=== PATIENT | female | born 1945 | race Caucasian/White ===

== ENCOUNTER 2016-10-18 09:50 | Outpatient (CLI) | payer MEDICARE, OTHER ==
--- NOTE | 2016-10-21 13:10 | Mammography Report ---
DIGITAL SCREENING MAMMOGRAM: 10/18/2016 CLINICAL INDICATION: A 71-year-old with history of bilateral reduction, nulliparous patient, for scre ening. COMPARISON: 10/2015, 10/2014, 10/2013, 01/2013, 06/2012, 06/2011, 06/2010, 05/2009, 05/2008, 02/2007. TECHNIQUE: Routine CC and MLO projections were obtained of the breasts. FINDINGS: The breasts again demonstrate scattered fibroglandular densities. Coarse, typically benign calcifications are present. Postoperative changes are stable. No suspicious masses, clustered microc alcifications, or regions of architectural distortion are identified. IMPRESSION: BENIGN FINDINGS. RECOMMENDATION: ROUTINE ANNUAL SCREENING UNLESS OTHERWISE CLINICALLY INDICATED. BIRADS CATEGORY 2-BENIGN FINDINGS. STANDARD QUALIFYING STATEMENTS 1. This examination was reviewed with the aid of Computer-Aided Detection (CAD). 2. A negative or benign imaging report should not delay biopsy if clinically suspicious findings are present. Consider surgical consultation if warranted. More than 5% of cancers are not identified by i maging. 3. Dense breasts may obscure an underlying neoplasm. JOB #: [id number] EXT JOB #:[id number]
== END 2016-10-18 09:51 | disposition home or self-care (01) ==
LOC: DI 09:50
PROVIDERS: ATTEND Family Medicine
DX: Z12.31 Encounter for screening mammogram for malignant neoplasm of breast (principal)
CPT/HCPCS: 77067

== ENCOUNTER 2017-04-14 08:00 | Outpatient (CLI) | payer MEDICARE, OTHER ==
[2017-04-14 19:30] LABS: ALBUMIN/GLOBULIN RATIO 1.6 (1.0-2.2); BILIRUBIN,TOTAL 0.4 mg/dL (0.2-1.0); BUN - BLOOD UREA NITROGEN 18 mg/dL (6-20); CALCIUM 9.5 mg/dL (8.5-10.3); CARBON DIOXIDE - CO2 27 mmol/L (21-32); CHLORIDE 107 mmol/L (101-111); CHOL/HDL RATIO 3.3 (<4.4); CHOLESTEROL 199 mg/dL; CREATININE 0.9 mg/dL (0.4-1.0); GFR - MDRD 62 (>89); GLUCOSE 89 mg/dL (70-100); HDL CHOLESTEROL 60 mg/dL; LDL/HDL RATIO 1.7 (<4.4); SODIUM 139 mmol/L (135-145); TOTAL PROTEIN 7.2 g/dL (6.7-8.2); TRIGLYCERIDES 197 mg/dL; VLDL CHOLESTEROL 39 mg/dL
== END 2017-04-14 08:01 | disposition home or self-care (01) ==
LOC: LAB.WCP 08:00
PROVIDERS: ATTEND Family Medicine
DX: Z00.00 Encounter for general adult medical examination without abnormal findings (principal); Z79.899 Other long term (current) drug therapy; E78.5 Hyperlipidemia, unspecified; K51.90 Ulcerative colitis, unspecified, without complications
CPT/HCPCS: 36415; 80053; 80061

== ENCOUNTER 2017-04-18 15:37 | Outpatient (CLI) | payer MEDICARE, OTHER ==
--- NOTE | 2017-04-20 00:02 | Ultrasound Report ---
EXAM: ABDOMEN ULTRASOUND EXAM DATE: 04/18/2017 04:59 PM. CLINICAL HISTORY: Abdominal pain and nausea/vomiting. COMPARISON: None. TECHNIQUE: Real-time scanning was performed with static images obtained. FINDINGS: Liver: Normal parenchymal echotexture. Main portal vein flow: Hepatopetal. Gallbladder: Normal. No stones, wall thickening, or sonographic Collins's sign. Biliary System: Common bile duct measures 4 mm. No intrahepatic or extrahepatic ductal dilatation. Pancreas: Unremarkable as visualized. The tail is obscured by overlying bowel gas. Kidneys: Right: 9.8 cm in length. Thin cortex. Normal parenchymal echogenicity. No visualized shadowing stones or hydronephrosis. Left: 9.8 cm in length. Normal parenchymal echogenicity. No visualized shadowing stones or hydronephr osis. Spleen: Normal size and echotexture, 9.1 cm in length. Aorta and Inferior Vena Cava: Unremarkable. Other: None. IMPRESSION: 1. No potential etiology identified for abdominal pain and nausea/vomiting. Specifically, no cholelit hiasis or sonographic evidence for acute cholecystitis. 2. Mild right renal atrophy. [facility] Referring Provider Line: [phone] SITE ID: [id number]
== END 2017-04-18 15:38 | disposition home or self-care (01) ==
LOC: DI 15:37
PROVIDERS: ATTEND Family Medicine
DX: R10.9 Unspecified abdominal pain (principal)
CPT/HCPCS: 76700

== ENCOUNTER 2017-07-04 08:41 | Outpatient (CLI) | payer MEDICARE, OTHER ==
--- NOTE | 2017-07-04 16:00 | Nuclear Medicine Report ---
EXAM: GASTRIC EMPTYING STUDY EXAM DATE: 07/04/2017 09:09 AM. CLINICAL HISTORY: GASTRO ESOPHAGEAL REFLUX DISEASE W/ESOPHAGITIS. COMPARISON: None. TECHNIQUE: A standard meal was radiolabeled with 0.9 mCi Tc-99m sulfur colloid according to protocol. Following the p.o. administration of this meal, the patient underwent multiple static images over th e abdomen from the anterior and posterior projections, at approximately 0, 1, 2, 3, and 4 hours foll owing the ingestion of the meal. Region of interest analysis was employed, and percent emptied/percen t remaining of the meal was calculated using both the geometric mean and decay corrections. FINDINGS: Calculations demonstrate: TIME (hours) Percent remaining. Normal values for percent remaining. 1 hour: 19.2% (30-90%) 2 hours: 5% (0-60%) 3 hours: 2.9% (0-30%) 4 hours: 1.1% (0-10%) IMPRESSION: Rapid gastric emptying. [facility] Referring Provider Line: [phone] SITE ID: [id number]
== END 2017-07-04 08:42 | disposition home or self-care (01) ==
LOC: DI 08:41
PROVIDERS: ATTEND Internal Medicine Gastroenterology
DX: K21.0 Gastro-esophageal reflux disease with esophagitis (principal)
CPT/HCPCS: 78265; A9541

== ENCOUNTER 2018-06-08 08:00 | Outpatient (CLI) | payer MEDICARE, OTHER | END 2018-06-08 23:59 | disposition home or self-care (01) | LOC: LAB.R 08:00 | PROVIDERS: ATTEND Family Medicine | DX: N39.0 Urinary tract infection, site not specified (principal) | CPT/HCPCS: 87086; 87181 ==

== ENCOUNTER 2018-10-12 14:19 | Outpatient (CLI) | payer MEDICARE, OTHER ==
--- NOTE | 2018-10-12 15:34 | XRAY Report ---
Reason: KNEE JOINT PAIN,RIGHT Procedure Date: 10/12/2018 Accession Number: [id number] / [id number] Procedure: WCP - Knee 2 View RT CPT Code: FULL RESULT: EXAM: RIGHT KNEE RADIOGRAPHY EXAM DATE: 10/12/2018 02:36 PM. CLINICAL HISTORY: Knee joint pain, right. COMPARISON: None. TECHNIQUE: 2 views. FINDINGS: Bones: Normal. No fractures or bone lesions. Joints: Small joint effusion. No dislocation. No significant marginal osteophytosis or joint space loss. Soft Tissues: Normal. No soft tissue swelling. IMPRESSION: Small joint effusion without significant degenerative changes. [facility]
== END 2018-10-12 14:20 | disposition home or self-care (01) ==
LOC: DI.WCP 14:19
PROVIDERS: ATTEND Family Medicine
DX: M25.461 Effusion, right knee (principal)

== ENCOUNTER 2018-10-12 14:22 | Outpatient (CLI) | payer MEDICARE, OTHER ==
--- NOTE | 2018-10-12 15:14 | XRAY Report ---
Reason: ANKLE JOINT PAIN,RIGHT Procedure Date: 10/12/2018 Accession Number: [id number] / [id number] Procedure: WCP - Ankle 2 View RT CPT Code: FULL RESULT: EXAM: RIGHT ANKLE RADIOGRAPHY EXAM DATE: 10/12/2018 02:36 PM. CLINICAL HISTORY: Right ankle joint pain. COMPARISON: None. TECHNIQUE: 2 views. FINDINGS: Bones: Normal. No fractures or bone lesions. Joints: Normal. No effusion. No subluxations. The ankle mortise is normally aligned. Soft Tissues: Normal. No soft tissue swelling. IMPRESSION: Normal ankle radiography. [facility]
== END 2018-10-12 14:23 | disposition home or self-care (01) ==
LOC: DI.WCP 14:22
PROVIDERS: ATTEND Family Medicine
DX: M25.571 Pain in right ankle and joints of right foot (principal); M25.561 Pain in right knee; M25.461 Effusion, right knee

== ENCOUNTER 2019-04-23 10:11 | Outpatient (CLI) | payer MEDICARE, OTHER ==
[2019-04-23 18:57] LABS: BASOPHILS % (AUTO) 0.6 %; EOSINOPHILS # (AUTO) 0.2 10^3/uL (0.0-0.7); EOSINOPHILS % (AUTO) 3.2 %; LYMPHOCYTES # (AUTO) 1.5 10^3/uL (1.5-3.5); LYMPHOCYTES % (AUTO) 21.1 %; MEAN CORPUSCULAR HEMOGLOBIN 30.5 pg (27.0-31.0); MEAN CORPUSCULAR HGB CONC 31.8 g/dL (32.0-36.0); MEAN CORPUSCULAR VOLUME 95.9 fL (81.0-99.0); MEAN PLATELET VOLUME 10.4 fL (7.9-10.8); MONOCYTES # (AUTO) 0.5 10^3/uL (0.0-1.0); MONOCYTES % (AUTO) 6.5 %; NEUTROPHILS # (AUTO) 4.8 10^3/uL (1.5-6.6); NEUTROPHILS % (AUTO) 68.3 %; PLT - PLATELET COUNT 201 10^3/uL (130-450); RED BLOOD COUNT 4.59 10^6/uL (4.20-5.40); RED CELL DISTRIBUTION WIDTH 12.7 % (12.0-15.0)
[2019-04-23 19:30] LABS: ALBUMIN 4.5 g/dL (3.2-5.5); ALBUMIN/GLOBULIN RATIO 1.5 (1.0-2.2); ALKALINE PHOSPHATASE 68 IU/L (42-121); ALT ALANINE AMINOTRANSFERASE 24 IU/L (10-60); AST ASPARTATE AMINOTRANSFERASE 26 IU/L (10-42); BILIRUBIN,TOTAL 0.9 mg/dL (0.2-1.0); BUN - BLOOD UREA NITROGEN 12 mg/dL (6-20); CALCIUM 9.5 mg/dL (8.5-10.3); CARBON DIOXIDE - CO2 28 mmol/L (21-32); CHLORIDE 107 mmol/L (101-111); CHOL/HDL RATIO 3.2 (<4.4); CHOLESTEROL 213 mg/dL; CREATININE 0.9 mg/dL (0.4-1.0); GFR - MDRD 62 (>89); GLUCOSE 94 mg/dL (70-100); HDL CHOLESTEROL 66 mg/dL; LDL CHOLESTEROL,CALCULATED 115 mg/dL; LDL/HDL RATIO 1.7 (<4.4); SODIUM 141 mmol/L (135-145); TOTAL PROTEIN 7.6 g/dL (6.7-8.2); VLDL CHOLESTEROL 32 mg/dL
== END 2019-04-23 23:59 | disposition home or self-care (01) ==
LOC: LAB.WCP 10:11
PROVIDERS: ATTEND Nurse Practitioner Family
DX: K51.90 Ulcerative colitis, unspecified, without complications (principal); Z79.899 Other long term (current) drug therapy
CPT/HCPCS: 36415; 80053; 80061; 83721; 84443; 85025

== ENCOUNTER 2019-06-22 09:34 | Outpatient (CLI) | payer MEDICARE, OTHER ==
--- NOTE | 2019-06-30 09:20 | Mammography Report ---
Reason: ROUTINE MAMMO Procedure Date: 06/22/2019 Accession Number: [id number] / [id number] Procedure: LYNSEY - Screening Mammo w/Crist[facility] CPT Code: Final Report FULL RESULT: EXAM: Screening Mammo w/Crist[facility] DATE: 06/22/2019 10:14 AM CLINICAL HISTORY: Screening encounter. History of nulliparity. TECHNIQUE: (B) - Bilateral CC and MLO views were obtained. COMPARISON: 10/18/2016 through 06/25/2010. PARENCHYMAL PATTERN: (F) - The breast(s) demonstrate(s) diffuse fatty replacement. FINDINGS: There are no suspicious masses, calcifications, or areas of distortion. IMPRESSION: Negative examination. BI-RADS category 1. RECOMMENDATION: (ANNUAL) - Recommend routine annual screening mammography. BI-RADS CATEGORY: (1) - Negative. STANDARD QUALIFYING STATEMENTS: 1. This examination was not reviewed with the aid of Computer-Aided Detection (CAD). 2. A negative or benign imaging report should not preclude biopsy if clinically suspicious findings are present. 3. Dense breasts may obscure an underlying neoplasm. 4. This examination was reviewed with the aid of 3D breast imaging (tomosynthesis).
== END 2019-06-22 09:35 | disposition home or self-care (01) ==
LOC: DI 09:34
DX: Z12.31 Encounter for screening mammogram for malignant neoplasm of breast (principal)
CPT/HCPCS: 77063; 77067

== ENCOUNTER 2020-07-18 07:00 | Outpatient (CLI) | payer MEDICARE, OTHER ==
[2020-07-18 18:15] LABS: BILIRUBIN,URINE NEGATIVE (NEGATIVE); GLUCOSE, URINE (UA) NEGATIVE (NEGATIVE); KETONES,URINE (UA) NEGATIVE (NEGATIVE); LEUKOCYTE ESTERASE, URINE MODERATE (NEGATIVE); NITRITE,URINE NEGATIVE (NEGATIVE); OCCULT BLOOD,URINE TRACE-INTA (NEGATIVE); PH,URINE 7.5 PH (5.0-7.5); PROTEIN,URINE NEGATIVE (NEGATIVE); UROBILINOGEN,URINE 0.2 (NORMAL) E.U./dL (NORMAL)
[2020-07-18 18:26] LABS: BACTERIA,URINE Rare /HPF (None Seen); CLARITY,URINE CLEAR (CLEAR); RBC,URINE 0-5 /HPF (0-5); SQUAMOUS EPITHELIAL CELL,UR RARE Squamous (<= Few)
== END 2020-07-18 23:59 | disposition home or self-care (01) ==
LOC: LAB.WCP 07:00
PROVIDERS: ATTEND Family Medicine
DX: N39.0 Urinary tract infection, site not specified (principal); N39.41 Urge incontinence
CPT/HCPCS: 81001

== ENCOUNTER 2021-02-27 09:36 | Outpatient (CLI) | payer MEDICARE, OTHER ==
--- NOTE | 2021-02-27 11:21 | MRI Report ---
PROCEDURE: Lower Leg (Tib-Fib) RT W/O INDICATIONS: INJURY RT ACHILLES TENDON TECHNIQUE: Noncontrast coronal and sagittal T1 spin echo and STIR; axial T1 spin echo and T2 fast spin echo with fat saturation through the left lower extremity (tib-fib). COMPARISON: None. FINDINGS: Image quality: Excellent. Bones: The visualized bone marrow demonstrates normal signal. The overlying cortex appears intact. No fractures lines or intra-osseous lesions. Soft tissues: The scanned muscles demonstrate normal overall bulk and internal signal. The Achilles tendon is intact. Subcutaneous tissues demonstrate no evidence of mass or substantial ed tim. IMPRESSION: Intact Achilles tendon. Reviewed by: Lavell Rodríguez MD on 02/27/2021 11:19 AM PDT Approved by: Lavell Rodríguez MD on 02/27/2021 11:19 AM PDT Station ID: [id number]
== END 2021-02-27 09:37 | disposition home or self-care (01) ==
LOC: DI 09:36
PROVIDERS: ATTEND Podiatrist
DX: S86.001A Unspecified injury of right Achilles tendon, initial encounter (principal)

== ENCOUNTER 2021-04-16 08:00 | Outpatient (CLI) | payer MEDICARE, OTHER ==
[2021-04-16 18:12] LABS: BASOPHILS % (AUTO) 0.5 %; EOSINOPHILS # (AUTO) 0.3 10^3/uL (0.0-0.7); HCT - HEMATOCRIT 43.9 % (37.0-47.0); HGB - HEMOGLOBIN 14.3 g/dL (12.0-16.0); LYMPHOCYTES # (AUTO) 2.2 10^3/uL (1.5-3.5); LYMPHOCYTES % (AUTO) 39.4 %; MEAN CORPUSCULAR HEMOGLOBIN 30.2 pg (27.0-31.0); MEAN CORPUSCULAR HGB CONC 32.6 g/dL (32.0-36.0); MEAN CORPUSCULAR VOLUME 92.8 fL (81.0-99.0); MEAN PLATELET VOLUME 10.3 fL (7.9-10.8); MONOCYTES # (AUTO) 0.4 10^3/uL (0.0-1.0); MONOCYTES % (AUTO) 6.7 %; NEUTROPHILS # (AUTO) 2.6 10^3/uL (1.5-6.6); PLT - PLATELET COUNT 233 10^3/uL (130-450); RED BLOOD COUNT 4.73 10^6/uL (4.20-5.40); RED CELL DISTRIBUTION WIDTH 12.5 % (12.0-15.0); WHITE BLOOD COUNT 5.5 x10^3/uL (4.8-10.8)
[2021-04-16 18:28] LABS: ALBUMIN 4.6 g/dL (3.2-5.5); ALBUMIN/GLOBULIN RATIO 1.6 (1.0-2.2); ALKALINE PHOSPHATASE 57 IU/L (42-121); ALT ALANINE AMINOTRANSFERASE 25 IU/L (10-60); AST ASPARTATE AMINOTRANSFERASE 25 IU/L (10-42); BILIRUBIN,TOTAL 0.7 mg/dL (0.2-1.0); BUN - BLOOD UREA NITROGEN 14 mg/dL (6-20); CALCIUM 9.9 mg/dL (8.5-10.3); CARBON DIOXIDE - CO2 29 mmol/L (21-32); CHLORIDE 102 mmol/L (101-111); CHOL/HDL RATIO 2.9 (<4.4); CHOLESTEROL 206 mg/dL; CREATININE 0.8 mg/dL (0.4-1.0); GFR - MDRD 70 (>89); GLUCOSE 86 mg/dL (70-100); HDL CHOLESTEROL 71 mg/dL; LDL CHOLESTEROL,CALCULATED 105 mg/dL; LDL/HDL RATIO 1.5 (<4.4); POTASSIUM 4.1 mmol/L (3.5-5.0); SODIUM 139 mmol/L (135-145); TOTAL PROTEIN 7.4 g/dL (6.7-8.2); TRIGLYCERIDES 150 mg/dL; VLDL CHOLESTEROL 30 mg/dL
[2021-04-16 18:34] LABS: THYROID STIMULATING HORMONE 0.99 uIU/mL (0.34-5.60)
== END 2021-04-16 23:59 | disposition home or self-care (01) ==
LOC: LAB.WCP 08:00
PROVIDERS: ATTEND Internal Medicine
DX: K51.90 Ulcerative colitis, unspecified, without complications (principal); E78.5 Hyperlipidemia, unspecified; M85.80 Other specified disorders of bone density and structure, unspecified site
CPT/HCPCS: 36415; 80053; 80061; 83721; 84443; 85025

== ENCOUNTER 2021-05-14 10:42 | Outpatient (CLI) | payer MEDICARE, OTHER ==
--- NOTE | 2021-05-15 14:37 | Mammography Report ---
BILATERAL DIGITAL SCREENING MAMMOGRAM 3D/2D: 05/14/2021 CLINICAL: Routine screening. Comparison is made to exams dated: 06/22/2019 mammogram, 10/18/2016 mammogram, and 10/27/2015 mammogram - [facility]. The tissue of both breasts is predominantly fatty. No significant masses, calcifications, or other findings are seen in either breast. There has been no significant interval change. IMPRESSION: NEGATIVE There is no mammographic evidence of malignancy. A 1 year screening mammogram is recommended. This exam was interpreted at Station ID: [id number]. NOTE: For mammograms, a report in lay terms will be sent to the patient. Approximately 15% of breast malignancies will not be visualized mammographically. In the management of a palpable breast mass, a negative mammogram must not discourage biopsy of a clinically suspicious lesion. Electronically Signed By: Jarett Campo M.D. ar/penrad:05/14/2021 13:20:54 ACR BI-RADS Category 1: Negative 3341F PARENCHYMAL PATTERN: (F) - The breast(s) demonstrate(s) diffuse fatty replacement. BI-RADS CATEGORY: (1) - 1 RECOMMENDATION: (ANNUAL) - Recommend routine annual screening mammography. [id number] 1 year screening LATERALITY: (B)
== END 2021-05-14 10:43 | disposition home or self-care (01) ==
LOC: DI 10:42
DX: Z12.31 Encounter for screening mammogram for malignant neoplasm of breast (principal)

== ENCOUNTER 2021-05-23 15:07 | Outpatient (CLI) | payer MEDICARE, OTHER ==
--- NOTE | 2021-05-23 16:47 | DEXA Report ---
PROCEDURE: Dexa Spine and/or Hip INDICATIONS: POST MENOPAUSAL TECHNIQUE: Dual energy x-ray absorptiometry (DXA) was performed on a [employer] System. Regions measur ed are the AP Spine, femoral neck, and if needed forearm. COMPARISON: None. FINDINGS: Lumbar Spine: Bone Mineral Density 1.275 g/cm/cm,T score 0.8, normal Left Hip: Bone Mineral Density 1.001 g/cm/cm,T score -0.1, normal Left Femoral Neck: Bone Mineral Density 0.886 g/cm/cm, T score -1.1, osteopenia (T score greater or equal to -1.0: NORMAL) (T score from -1.1 to -2.4: OSTEOPENIA) (T score less than or equal to -2.5 to: OSTEOPOROSIS) Impression: Left femoral neck osteopenia. Patients with diagnosis of osteoporosis or osteopenia should have regular bone mineral density assess ment. For those eligible for Medicare, routine testing is allowed once every 2 years. Testing frequ ency can be increased for patients who have rapidly progressing disease or for those who are receivin g medical therapy to restore bone mass. Reviewed by: Nighat Agrawal MD, PhD on 05/23/2021 4:46 PM PST Approved by: Nighat Agrawal MD, PhD on 05/23/2021 4:46 PM PST Station ID: [id number]
== END 2021-05-23 15:08 | disposition home or self-care (01) ==
LOC: DI 15:07
PROVIDERS: ATTEND Internal Medicine
DX: Z78.0 Asymptomatic menopausal state (principal); M85.88 Other specified disorders of bone density and structure, other site

== ENCOUNTER 2021-12-02 11:48 | Emergency (ER) | payer MEDICARE, OTHER ==
[2021-12-02 11:55] VITALS: BP 131/64
[2021-12-02] MEDS ORDERED: TETANUS/DIPHTHERIA/PERTUSSIS 0.5 ML SYRINGE IM ONE (13:38)
--- NOTE | 2021-12-02 13:42 | ED Physician Documentation ---
PD HPI UPPER EXT INJURY - Stated complaint Stated Complaint: R MIDDLE FINGER LAC - Chief complaint Chief Complaint: Laceration - History obtained from History obtained from: Patient - History of Present Illness Location: Right, Finger (3rd) Type of injury: Laceration Where injury occurred: Home Timing - details: Abrupt onset Pain level max: 3 Pain level now: 2 Improved by: Rest Worsened by: Moving Associated symptoms: No: Weakness, Numbness, Tingling - Additonal information Additional information: Patient is a 76-year-old female who presents to the emergency department with a laceration to the tip of the right middle finger last night. This was on a mandolin. Unknown last Tdap. She states continued bleeding today. She is not on any anticoagulants. Worse with movement, better with rest. Review of Systems Constitutional: denies: Fever, Chills GI: denies: Vomiting PD PAST MEDICAL HISTORY - Past Medical History Cardiovascular: High cholesterol Respiratory: None Endocrine/Autoimmune: None GI: GERD, Colon polyps, Ulcerative colitis : Chronic bladder infection, Frequency HEENT: Chronic vision loss Psych: None Musculoskeletal: None, Osteoarthritis Derm: None - Past Surgical History General: Colonoscopy, EGD /[employer] COMPENSATION CLAIMS ANALYST: Breast reduction - Present Medications Home Medications: Ambulatory Orders Medication Instructions Recorded Confirmed Mesalamine [Asacol Hd] 800 mg PO BID 10/04/14 04/17/16 Simvastatin 20 mg PO DAILY 10/04/14 04/17/16 raNITIdine HCL [Ranitidine HCl] 150 mg PO BID 10/04/14 04/17/16 Multivit-Min/Iron/Folic/Kkk467 1 each PO DAILY 04/17/16 04/17/16 [Hair, Skin and Nails Caplet] Pantoprazole [Protonix] 40 mg PO BID 04/17/16 04/17/16 - Allergies Allergies/Adverse Reactions: Allergies Allergy/AdvReac Type Severity Reaction Status Date / Time hydrocodone bitartrate * AdvReac Unknown Verified 10/04/14 15:14 [From Vicodin] Sulfa (Sulfonamide AdvReac Rash Verified 10/04/14 15:14 Antibiotics) PD ED PE NORMAL - Vitals Vital signs reviewed: Yes - General General: Alert and oriented X 3, No acute distress - Derm Derm: Warm and dry - Extremities Extremities: Other (Small avulsion to the tip of the right third digit, small distal aspect of the nail has been avulsed as well. There is slight bleeding. Neurovascular intact.) - Neuro Neuro: Alert and oriented X 3 Results - Vitals Vitals: Vital Signs - 24 hr 12/02/21 11:53 Temperature 36.7 C Heart Rate 79 Respiratory 18 Rate Blood Pressure 131/64 H O2 Saturation 97 Oxygen O2 Source Room air PD MEDICAL DECISION MAKING - ED course Complexity details: reviewed results, re-evaluated patient, considered differential, d/w patient ED course: A tourniquet was applied to the finger. The area was cleansed and Dermabond applied. It is approximately a 5 x 4 mm oval area. Tourniquet was removed. No further bleeding. Patient tolerated well. Warnings of infection and instructions on wound care given at bedside. Also counseled on how to minimize scarring. Patient counseled regarding signs and symptoms for which I believe and urgent re-evaluation would be necessary. Patient with good understanding of and agreement to plan and is comfortable going home at this time This document was made in part using voice recognition software. While efforts are made to proofread this document, sound alike and grammatical errors may occur. Last tetanus shot was 1992. Tdap given Departure - Departure Disposition: Home, Self Care Clinical Impression: Finger laceration Qualifiers: Encounter type: initial encounter Finger: middle finger Damage to nail status: with damage Foreign body presence: without foreign body Laterality: right Qualified Code(s): S61.312A - Laceration without foreign body of right middle finger with damage to nail, initial encounter Condition: Good Instructions: ED Laceration Hand Follow-Up: Harsh Madrigal MD [Primary Care Provider] - As Needed Comments: The glue will fall off on its own. Please follow-up with your doctor as needed for further care. Return if you notice redness, swelling or drainage from the wound. Do not apply any ointment as this may dissolve the glue. Keep the wound clean. Your last tetanus shot was 1992, you are given another tetanus shot today.
== END 2021-12-02 14:08 | disposition home or self-care (01) ==
LOC: ED 11:48
DX: S61.312A Laceration without foreign body of right middle finger with damage to nail, initial encounter (principal); W27.4XXA Contact with kitchen utensil, initial encounter
CPT/HCPCS: 12001; 90471; 99283

== ENCOUNTER 2023-06-26 13:50 | Outpatient (CLI) | payer MEDICARE, OTHER ==
--- NOTE | 2023-06-27 09:14 | Mammography Report ---
BILATERAL DIGITAL SCREENING MAMMOGRAM 3D/2D: 06/26/2023 CLINICAL: Routine screening. Comparison is made to exams dated: 05/30/2022 mammogram, 05/14/2021 mammogram, 06/22/2019 mammogram, 10/18 mammogram, 10/27/2015 mammogram, and 10/18/2014 mammogram - [facility]. There are scattered areas of fibroglandular density in both breasts (category b / 25%-50% glandular t issue). No significant masses, calcifications, or other findings are seen in either breast. There has been no significant interval change. IMPRESSION: NEGATIVE There is no mammographic evidence of malignancy. A 1 year screening mammogram is recommended. Based on the Tyrer Cuzick model (a risk assessment model) the patient's lifetime risk is 3.7% and her 10 year risk is 3.7%. According to the ACR, ACS, and NCCN guidelines, an annual breast MRI exam navarro g with mammogram is recommended if the patient's lifetime risk is 20% or greater. This exam was interpreted at Station ID: [id number]. NOTE: For mammograms, a report in lay terms will be sent to the patient. Approximately 15% of breast malignancies will not be visualized mammographically. In the management of a palpable breast mass, a negative mammogram must not discourage biopsy of a clinically suspicious lesion. Electronically Signed By: Darci quiroz/florentino:06/26/2023 15:27:22 letter sent: No_Letter ACR BI-RADS Category 1: Negative 3341F PARENCHYMAL PATTERN: (A) - The breast(s) demonstrate(s) scattered fibroglandular densities. BI-RADS CATEGORY: (1) - 1 Mammogram [id number] 1 year screening LATERALITY: (B)
== END 2023-06-26 13:51 | disposition home or self-care (01) ==
LOC: DI 13:50
DX: Z12.31 Encounter for screening mammogram for malignant neoplasm of breast (principal); R92.323 Mammographic fibroglandular density, bilateral breasts

== ENCOUNTER 2023-08-12 08:24 | Outpatient (CLI) | payer MEDICARE, OTHER ==
[2023-08-12 08:47] LABS: BILIRUBIN,URINE NEGATIVE (NEGATIVE); GLUCOSE, URINE (UA) NEGATIVE (NEGATIVE); KETONES,URINE (UA) NEGATIVE (NEGATIVE); LEUKOCYTE ESTERASE, URINE NEGATIVE (NEGATIVE); NITRITE,URINE NEGATIVE (NEGATIVE); OCCULT BLOOD,URINE NEGATIVE (NEGATIVE); PROTEIN,URINE NEGATIVE (NEGATIVE); UROBILINOGEN,URINE 0.2 (NORMAL) E.U./dL (NORMAL)
[2023-08-12 08:49] LABS: EOSINOPHILS # (AUTO) 0.2 10^3/uL (0.0-0.7); EOSINOPHILS % (AUTO) 4.1 %; HCT - HEMATOCRIT 40.8 % (37.0-47.0); HGB - HEMOGLOBIN 13.3 g/dL (12.0-16.0); LYMPHOCYTES # (AUTO) 1.6 10^3/uL (1.5-3.5); LYMPHOCYTES % (AUTO) 39.1 %; MEAN CORPUSCULAR HGB CONC 32.6 g/dL (32.0-36.0); MEAN CORPUSCULAR VOLUME 91.9 fL (81.0-99.0); MEAN PLATELET VOLUME 9.5 fL (7.9-10.8); MONOCYTES # (AUTO) 0.3 10^3/uL (0.0-1.0); NEUTROPHILS % (AUTO) 47.6 %; PLT - PLATELET COUNT 182 10^3/uL (130-450); RED BLOOD COUNT 4.44 10^6/uL (4.20-5.40); RED CELL DISTRIBUTION WIDTH 12.9 % (12.0-15.0); WHITE BLOOD COUNT 4.1 x10^3/uL (4.8-10.8)
[2023-08-12 08:50] LABS: CLARITY,URINE CLEAR (CLEAR)
[2023-08-12 09:10] LABS: ALBUMIN 4.2 g/dL (3.2-5.5); ALKALINE PHOSPHATASE 65 IU/L (42-121); ALT ALANINE AMINOTRANSFERASE 19 IU/L (10-60); AST ASPARTATE AMINOTRANSFERASE 20 IU/L (10-42); BILIRUBIN,TOTAL 0.6 mg/dL (0.2-1.0); BUN - BLOOD UREA NITROGEN 19 mg/dL (6-20); CALCIUM 10.2 mg/dL (8.5-10.3); CARBON DIOXIDE - CO2 28 mmol/L (21-32); CHLORIDE 108 mmol/L (101-111); CHOL/HDL RATIO 3.4 (<4.4); CHOLESTEROL 201 mg/dL; CREATININE 0.8 mg/dL (0.6-1.3); GFR - MDRD 70 (>89); GLUCOSE 92 mg/dL (74-104); HDL CHOLESTEROL 59 mg/dL; LDL CHOLESTEROL,CALCULATED 113 mg/dL; LDL/HDL RATIO 1.9 (<4.4); POTASSIUM 4.3 mmol/L (3.5-4.5); SODIUM 140 mmol/L (135-145); TOTAL PROTEIN 6.3 g/dL (6.4-8.9); TRIGLYCERIDES 143 mg/dL (48-352); VLDL CHOLESTEROL 29 mg/dL
[2023-08-12 09:28] LABS: BACTERIA,URINE Rare /HPF (None Seen); RBC,URINE 0-5 /HPF (0-5); SQUAMOUS EPITHELIAL CELL,UR RARE Squamous (<= Few); WBC,URINE 0-3 /HPF (0-5)
== END 2023-08-12 08:25 | disposition home or self-care (01) ==
LOC: LAB 08:24
PROVIDERS: ATTEND Internal Medicine
DX: K51.90 Ulcerative colitis, unspecified, without complications (principal); N39.41 Urge incontinence; E78.5 Hyperlipidemia, unspecified
CPT/HCPCS: 36415; 80053; 80061; 81001; 83721; 85025; 87086